=== PATIENT | female | born 1995 | race Hispanic/Latino ===

== ENCOUNTER 2023-11-28 12:54 | Outpatient (CLI) | payer BC ==
[~2023-11-28 12:54] MED LIST: Magnevist 469MG/ML 20 ML VIAL ONE
== END 2023-11-28 12:55 | disposition home or self-care (01) ==
LOC: CSHMRI 12:54
PROVIDERS: ATTEND Family Medicine
DX: R79.89 Other specified abnormal findings of blood chemistry (principal); J34.89 Other specified disorders of nose and nasal sinuses
CPT/HCPCS: 70553; A9579

== ENCOUNTER 2025-02-19 14:23 | Outpatient (CLI) | payer BC | END 2025-02-19 14:24 | disposition home or self-care (01) | LOC: CSHMAMMO 14:23 | PROVIDERS: ATTEND Family Medicine | DX: N64.4 Mastodynia (principal); R92.333 Mammographic heterogeneous density, bilateral breasts | CPT/HCPCS: 77066; G0279 ==